=== PATIENT | female | born 1985 | race African-American/Black ===

== ENCOUNTER 2017-11-28 16:12 | Emergency (ER) | payer OTHER ==
[2017-11-28] MEDS ORDERED: HYDROCODONE/ACETAMINOPHEN 5-325 MG TABLET PO ONE (19:21)
[2017-11-28] MEDS ORDERED: OXYCODONE-ACETAMINOPHEN 5-325 MG TABLET PO ONE (19:22)
--- NOTE | 2017-11-28 19:22 | ER Document Report ---
HPI - HPI Patient complains to provider of: Right knee pain Onset: Other - Thursday morning at 0400 pain got a lot worse. It originally started 2 months ago. Pain Level: 2 Context: 32-year-old female has had some knee pain for 2 months the right lateral and posterior knee., Woke up Thursday morning at 04 100 with more severe pain which is much worse when she tries to bend it. She has been using a cane and able to walk with it but does not want to bend it because it increases the pain. No known injury. No fever or chills. No history gout. No chest pain or shortness of breath. No history DVT. Associated Symptoms: None Exacerbated by: Other - Bending the knee Relieved by: Other - Keeping it straight Similar symptoms previously: Yes Recently seen / treated by doctor: No - ROS ROS below otherwise negative: Yes Systems Reviewed and Negative: Yes All other systems reviewed and negative Past Medical History - General Information source: Patient - Social History Smoking Status: Never Smoker Lives with: Family Family History: Reviewed & Not Pertinent - Medical History Medical History: Negative Surgical Hx: Negative Vertical Provider Document - CONSTITUTIONAL Agree With Documented VS: Yes Exam Limitations: No Limitations - INFECTION CONTROL TRAVEL OUTSIDE OF THE [place] IN LAST 30 DAYS: No - MUSCULOSKELETAL/EXTREMETIES Musculoskeletal/Extremeties: Tender - mild warm lateral right knee, mild tender mid posterior knee, no becker cyst, no effusion, non tender calf and thigh, No Edema. negative: FROM - NEURO Level of Consciousness: Awake Motor/Sensory: No Motor Deficit, No Sensory Deficit - DERM Integumentary: No Rash Course - Re-evaluation Re-evalutation: 11/28/17 20:30 The lateral right knee is warm but not read I do not feel an effusion. The x- ray is negative per radiologist. the patient's pain is a lot better she is able to flex at some without severe pain. We will place her in a knee immobilizer and referred to orthopedics and recommend that she come back to the emergency room for any new or worsening symptoms. 11/28/17 20:30 11/28/17 21:11 Patient used to take blood pressure medicine amlodipine 5 mg combined with benazepril. She has not taken it since July she is waiting for insurance to kick in in January but she will fill a prescription. 11/28/17 21:32 - Vital Signs Vital signs: Temp Pulse Resp BP Pulse Ox 99.4 F 92 17 190/118 H 100 11/28/17 16:26 11/28/17 16:26 11/28/17 16:26 11/28/17 16:26 11/28/17 16:26 Procedures - Immobilization Right Knee Time completed: 20:40 Immobilizer type: Knee immobilizer Performed by: PCT Post-Proc Neuro Vasc Exam: Normal Alignment checked and good: Yes Discharge - Discharge Clinical Impression: Right knee pain Qualifiers: Chronicity: chronic Qualified Code(s): M25.561 - Pain in right knee Hypertension Qualifiers: Hypertension type: essential hypertension Qualified Code(s): I10 - Essential ( primary) hypertension Condition: Good Disposition: HOME, SELF-CARE Instructions: Acetaminophen, Use of Crutches ([facility]), Ibuprofen (General) ([facility]), Suspected Internal Knee Injury ([facility]), Knee Immobilizing Splint ([facility]) Additional Instructions: Call Thursday and schedule appointment with orthopedic doctor for further evaluation Return to the emergency room any worsening of the symptoms Knee immobilizer Crutches Prescriptions: Ibuprofen [Motrin 600 mg Tablet] 600 mg PO Q8HP PRN #30 tablet PRN Reason: Amlodipine Besylate/Benazepril [Amlodipine-Benazepril 5-10 mg] 1 cap PO DAILY # 30 cap Forms: Return to Work Referrals: MARY ALVAREZ MD [ACTIVE STAFF] - 11/30/17 (call for orthopedic appt)
[2017-11-28] MEDS ORDERED: ONDANSETRON 4 MG TAB.RAPDIS PO ONE (19:29)
--- NOTE | 2017-11-28 20:27 | RADIOLOGY REPORT (SQ) ---
EXAM DESCRIPTION: KNEE RIGHT 4 VIEWS COMPLETED DATE/TIME: 11/28/2017 8:11 pm REASON FOR STUDY: pain and sweling COMPARISON: None. NUMBER OF VIEWS: Four views. TECHNIQUE: AP, lateral, and both oblique radiographic images acquired of the right knee. LIMITATIONS: None. FINDINGS: MINERALIZATION: Normal. BONES: No acute fracture or dislocation. No worrisome bone lesions. JOINT: No effusion. SOFT TISSUES: No soft tissue swelling. No radio-opaque foreign body. OTHER: No other significant finding. IMPRESSION: NO SIGNIFICANT RADIOGRAPHIC ABNORMALITY. TECHNICAL DOCUMENTATION: JOB ID: [id number] [employer]- All Rights Reserved Reading location - IP/workstation name: [email or web address]
[2017-11-28 20:55] VITALS: BP 194/126
== END 2017-11-28 21:18 | disposition home or self-care (01) ==
LOC: ER 16:12
DX: M25.561 Pain in right knee (principal); I10 Essential (primary) hypertension
CPT/HCPCS: 99283; 73564; L1830; S0119

== ENCOUNTER 2020-01-03 23:20 | Emergency (ER) | payer SELFPAY ==
[2020-01-03 23:31] VITALS: BP 215/128
--- NOTE | 2020-01-03 23:33 | ER Document Report ---
ED Medical Screen (RME) - General Chief Complaint: Vaginal Pain Stated Complaint: POSSIBLE VAGINAL PAIN Time Seen by Provider: 01/03/20 23:26 Primary Care Provider: MARCIE SAEED MD [Primary Care Provider] - Follow up as needed Mode of Arrival: Ambulatory Information source: Patient Notes: 34-year-old female presented to ED for vaginal pain and discharge. While she was here her blood pressure is 215/128. She states it has been very high for a long time. She states she does not have insurance and has not been to her primary care doctor and has not taken her blood pressure medicine in a long time. I have instructed her please please please to follow-up with his blood pressure and take medicine as prescribed to prevent strokes and other severe complications. We will order blood urine and a pelvic exam at this time. And she will be seen by another provider. I have greeted and performed a rapid initial assessment of this patient. A comprehensive ED assessment and evaluation of the patient, analysis of test results and completion of medical decision making process will be conducted by an additional ED providers. TRAVEL OUTSIDE OF THE [place] IN LAST 30 DAYS: No - Related Data Allergies/Adverse Reactions: sulfamethoxazole [From Bactrim] Allergy (Verified 11/28/17 16:16) trimethoprim [From Bactrim] Allergy (Verified 11/28/17 16:16) Past Medical History Renal/ Medical History: Denies: Hx Peritoneal Dialysis Doctor's Discharge - Discharge Referrals: MARCIE SAEED MD [Primary Care Provider] - Follow up as needed
== END 2020-01-04 00:16 | disposition left against medical advice (07) ==
LOC: ER 23:20
DX: R10.2 Pelvic and perineal pain (principal); Z53.20 Procedure and treatment not carried out because of patient's decision for unspecified reasons
CPT/HCPCS: 99281